=== PATIENT | female | born 1955 | race Caucasian/White ===

== ENCOUNTER 2019-03-24 08:14 | Day surgery (SDC) | payer OTHER ==
[2019-03-24 08:34] LABS: Absolute Lymphocytes (CBC) 1.8 K/uL (0.7-4.9); Absolute Monocytes 0.5 K/uL (0.1-1.3); Absolute Neutrophil 2.7 K/uL (1.8-8.0); Eosinophils % 3.8 % (0-4.4); Hematocrit 36.7 % (36.0-45.0); Lymphocytes % 33.7 % (15.3-44.8); MPV 6.8 fL (7.6-11.3); Monocytes % 8.8 % (3.3-12.3); RBC Red Blood Cell Count 4.11 M/uL (3.86-4.86)
[2019-03-24] MEDS ORDERED: Ringers Lactate 1,000 ML IV ONE ×4 (08:54→15:27)
[2019-03-24] MEDS ORDERED: SCOPOLAMINE HYDROBROMIDE PATCH TD ONE (08:54)
[2019-03-24 09:05] LABS: Urine Appearance CLEAR; Urine Bilirubin NEGATIVE (NEG); Urine Blood NEGATIVE (NEG); Urine Color YELLOW; Urine Glucose NEGATIVE (NEG); Urine Protein NEGATIVE (NEG); Urine Urobilinogen 0.2 mg/dL (0.2-1.0)
[2019-03-24 09:08] LABS: Urine Microscopic Reflex NO UMIC
--- NOTE | 2019-03-24 09:10 | RAD REPORT ---
EXAM DESCRIPTION: Pipo Akers (2 Views)03/24/2019 8:11 am CLINICAL HISTORY: PRE OP FOR SALINE IMPLANT EXTRACTION, BRACHIAL PLASTY, AND BREAST LIFT COMPARISON: None FINDINGS: The lungs appear clear of acute infiltrate. The heart is normal size IMPRESSION: No acute abnormalities displayed
[2019-03-24] MEDS ORDERED: CEFAZOLIN SODIUM 1 GM/VIAL ONE ×2 (09:18→14:34)
[2019-03-24] MEDS ORDERED: BACITRACIN 50000 UNIT VIAL ONE (09:18)
[2019-03-24] MEDS ORDERED: NS 0.9% VIAL 20 ML ONE (09:18)
[2019-03-24] MEDS ORDERED: DEXAMETHASONE 10 MG/ML VIAL ONE (09:18)
[2019-03-24] MEDS ORDERED: PROPOFOL 200 MG/20 ML VIAL IV ONE ×2 (09:18→15:05)
[2019-03-24] MEDS ORDERED: FENTANYL CITR 250 MCG/5 ML ONE (09:18)
[2019-03-24] MEDS ORDERED: GENTAMICIN SULF 80 MG/2ML INJ ONE (09:18)
[2019-03-24] MEDS ORDERED: MIDAZOLAM HCL 2 MG/2 ML INJ ONE (09:19)
[2019-03-24] MEDS ORDERED: NS 0.9% VIAL 10 ML ONE ×4 (09:19→15:09)
[2019-03-24] MEDS ORDERED: ONDANSETRON 4 MG/2 ML VIAL ONE ×2 (09:19→15:09)
[2019-03-24] MEDS ORDERED: LIDOCAINE 1% MPF 5 ML VIAL ONE ×3 (09:19→09:20)
[2019-03-24] MEDS ORDERED: VECURONIUM 10 MG/VIAL IV ONE ×2 (09:19→09:25)
[2019-03-24] MEDS: CEFAZOLIN/SWI 1gm 1 GM/10 ML SYR ONE ×2 (09:45→09:53)
[2019-03-24] MEDS ORDERED: Phenylephrine HCl 10 MG/ML 1 ML VIAL ONE (11:17)
--- NOTE | 2019-03-24 12:03 | EKG ---
Test Date: 2019-03-24 Test Time: 07:55:11 Unemployment Insurance Director: TERRI MEASUREMENT RESULTS: Intervals: Rate: 73 ME: 172 QRSD: 84 QT: 402 QTc: 442 [place]: P: 69 ME: 172 QRS: 43 T: 58 INTERPRETIVE STATEMENTS: Normal sinus rhythm Normal ECG No previous ECG available for comparison Electronically Signed On 03-24-19 12:02:08 CDT by Regulo Hair
[2019-03-24] MEDS ORDERED: FENTANYL CITR 100 MCG/2 ML ONE (13:25)
[2019-03-24] MEDS ORDERED: GLYCOPYRROLATE 0.2 MG/ML SYR ONE ×2 (15:08→15:28)
[2019-03-24] MEDS ORDERED: NEOSTIGMINE 1 MG/ML -10 ML VIAL ONE (15:09)
[2019-03-24] MEDS ORDERED: MEPERIDINE HCL 25 MG/0.5 ML ONE (15:09)
[2019-03-24] MEDS ORDERED: KETOROLAC 30 MG/ML INJ ONE (15:09)
[2019-03-24] MEDS ORDERED: Mastisol Adhesive Liq ONE ×2 (15:34→16:05)
[2019-03-24] MEDS: HYDROMORPHONE HCL 1 MG/ML INJ ONE ×2 (16:30→16:35)
[2019-03-24] MEDS ORDERED: HYDROCODONE/APAP 7.5/325 MG TAB PO ONE (17:32)
[2019-03-24] MEDS ORDERED: HYDROCODONE/APAP 7.5/325 MG TAB ONE (17:47)
--- NOTE | 2019-03-25 03:48 | OP ---
Surgeon: Derek Piedra MD Gas Station Clerk: [place]. Preoperative Diagnoses: Status post breast augmentation with breast descent and lipodystrophy. Postoperative Diagnoses: Status post breast augmentation with breast descent and lipodystrophy. Procedure Performed: 1.Explant and breast lift. 2.Brachioplasty. Anesthesia: General. Procedure In Detail: After satisfactory induction of general anesthesia, the chest was prepped with DuraPrep. Dry sterile drapes applied in the usual manner. A 45 mm template used to outline the righ t and left areola. Transverse and curvilinear inferior incisions were made and the skin was de-epith elialized with the dermabrader or EpiCut. The flap was elevated 1 cm thick towards the sternum, clav icle, anterior axillary line. Then, the inferior incision was made. The dissection was performed re tropectoral on the right side. We removed the implant, which was approached from the pocket. The le ft breast implant was more subcutaneous and removed from the lateral incision in the subcutaneous tis margaret. The right implant was 410 cc, the left implant was 424 g. The patient then had conization perf ormed. This was done with 2-0 PDS suture. The straps were elevated at 12 o'clock, 1:30, and 3 o'carlton ck positions on the right breast, mirror image on the left. The straps were then woven in and out of the pectoralis major muscle, back to the base of the cone, back to pectoralis muscle and back to the base of the cone and tied to themselves with 2-0 PDS. The 3 o'clock strap was sewn over sternum at 3 o'clock position with 2-0 Ethibond. Mirror image was done on the left side. Wounds were temporari ly stapled shut. The patient sat up, examined for symmetry, any irregularities. The patient was the n returned to supine position. The wound was irrigated with antibiotic solution. A 10 KARINA was gardenia t out of the axilla, sewn in place with 2-0 silk. Excess dog-ears were cut off with a scalpel and wi th cutting forceps, and the wound closed in layers with 3-0 Vicryl subcutaneous, 3-0 PDS running subc uticular tied in the vertical meridian of the breasts. Left and right side done simultaneously, then 45 mm template was used to outline the core of the nipples. Delivery site tissue was excised. Nipp les delivered and sewn with interrupted 4-0 PDS followed by 4-0 PDS running subcuticular. Attention was turned to the brachioplasty. The patient was re-prepped. All new drapes, gowns, and equipments were used. Prepped circumferentially with a DuraPrep. Stockinettes were placed in the arms. Dry st erile drapes applied in the usual manner. Also, a transaxial and a transverse incision was made. Ex cess skin was then cut off. It is done on both sides and then electrocautery was used for hemostasis . The wound was then closed with 0 Vicryl in the subcutaneous, 4-0 PDS running and locking. Dressin gs with tincture of benzoin and Steri-Strips over the arms and then Kerlix. The dressing consisted o f tincture of benzoin, Steri-Strips, 4 x 4's, fluffs, and Kane wrap. The patient tolerated the proced ure well and returned to recovery. Estimated blood loss about 300 cc. ALEXX/IRENA Voice ID: [id number] Report ID: [id number]
== END 2019-03-24 17:58 | disposition home or self-care (01) ==
LOC: OR 08:14
PROVIDERS: ATTEND Specialist
PROC: 0HSV0ZZ Reposition Bilateral Breast, Open Approach (ICD-10-PCS; 2019-03-24)
PROC: 0J0F0ZZ Alteration of Left Upper Arm Subcutaneous Tissue and Fascia, Open Approach (ICD-10-PCS; 2019-03-24)
PROC: 0J0D0ZZ Alteration of Right Upper Arm Subcutaneous Tissue and Fascia, Open Approach (ICD-10-PCS; 2019-03-24)
PROC: 0HPU0JZ Removal of Synthetic Substitute from Left Breast, Open Approach (ICD-10-PCS; principal; 2019-03-24 09:00)
PROC: 0HPT0JZ Removal of Synthetic Substitute from Right Breast, Open Approach (ICD-10-PCS; 2019-03-24 09:00)
DX: N65.1 Disproportion of reconstructed breast (principal); L98.7 Excessive and redundant skin and subcutaneous tissue; E88.1 Lipodystrophy, not elsewhere classified; N60.91 Unspecified benign mammary dysplasia of right breast; N60.41 Mammary duct ectasia of right breast
CPT/HCPCS: 36415; 71046; 81003; 85025; 88305; 93005; J0690; J1100; J1170; J1580; J2175; J2250; J2370; J2405; J2704; J2710; J3010

== ENCOUNTER 2019-12-08 08:16 | Day surgery (SDC) | payer OTHER ==
[~2019-12-08 08:16] MED LIST: EPINEPHRINE/PF 1 MG/ML AMP ONE; Mastisol Adhesive Liq ONE; NA CHLORIDE 0.9% 2,000 ML ONE
[2019-12-08] MEDS ORDERED: propofoL 200 MG/20 ML VIAL IV ONE (08:17)
[2019-12-08] MEDS ORDERED: LIDOCAINE 2% MPF 5 ML VIAL ONE (08:17)
[2019-12-08] MEDS ORDERED: MIDAZOLAM HCL 2 MG/2 ML INJ ONE (08:17)
[2019-12-08] MEDS ORDERED: FENTANYL CITR 250 MCG/5 ML ONE (08:17)
[2019-12-08] MEDS ORDERED: ROCURONIUM 50 MG/5 ML VIAL IV ONE (08:17)
[2019-12-08] MEDS ORDERED: NS 0.9% VIAL 20 ML ONE (08:20)
[2019-12-08 08:25] LABS: Absolute Lymphocytes (CBC) 1.8 K/uL (0.7-4.9); Basophils % 0.8 % (0-1.3); Hematocrit 37.6 % (36.0-45.0); Lymphocytes % 34.2 % (15.3-44.8); MPV 6.7 fL (7.6-11.3); RBC Red Blood Cell Count 4.25 M/uL (3.86-4.86)
--- NOTE | 2019-12-08 08:41 | EKG ---
Test Date: 2019-12-08 Test Time: 07:54:51 Nailer Operator: TERRI MEASUREMENT RESULTS: Intervals: Rate: 67 AR: 180 QRSD: 84 QT: 416 QTc: 439 [place]: P: 66 AR: 180 QRS: 47 T: 40 INTERPRETIVE STATEMENTS: Normal sinus rhythm Nonspecific T wave abnormality Abnormal ECG Compared to ECG 03/24/2019 07:55:11 T-wave abnormality now present Electronically Signed On 12-08-19 08:40:50 TENTMAKER by Regulo Hair
--- NOTE | 2019-12-08 08:43 | RAD REPORT ---
EXAM DESCRIPTION: RAD - Chest Pa And Lat (2 Views) - 12/08/2019 8:16 am CLINICAL HISTORY: preop Chest pain. COMPARISON: Chest Pa And Lat (2 Views) dated 03/24/2019 FINDINGS: The lungs are clear. The heart is mildly to moderately enlarged. No displaced fractures.
[2019-12-08] MEDS ORDERED: CEFAZOLIN/SWI 1gm 1 GM/10 ML SYR ONE (08:56)
[2019-12-08] MEDS ORDERED: Ringers Lactate 1,000 ML IV ONE ×3 (08:56→12:29)
[2019-12-08] MEDS ORDERED: SCOPOLAMINE HYDROBROMIDE PATCH TD ONE ×2 (08:56→09:05)
[2019-12-08] MEDS ORDERED: LANO/MINERAL OIL/PETRO 3.5 GM ONE (09:50)
[2019-12-08] MEDS ORDERED: VECURONIUM 10 MG/VIAL IV ONE (10:55)
[2019-12-08] MEDS ORDERED: Mastisol Adhesive Liq ONE (12:27)
[2019-12-08] MEDS ORDERED: MEPERIDINE HCL 25 MG/0.5 ML ONE (12:28)
[2019-12-08] MEDS ORDERED: dexAMETHasone 10 MG/ML VIAL ONE (12:28)
[2019-12-08] MEDS ORDERED: ONDANSETRON 4 MG/2 ML VIAL ONE ×2 (12:28→14:14)
[2019-12-08] MEDS ORDERED: GLYCOPYRROLATE 0.2 MG/ML SYR ONE (12:46)
[2019-12-08] MEDS ORDERED: NEOSTIGMINE 1 MG/ML -5 ML ONE (12:54)
[2019-12-08] MEDS: MEPERIDINE HCL 25 MG/0.5 ML ONE ×2 (13:33→13:45)
[2019-12-08] MEDS ORDERED: HYDROMORPHONE HCL 1 MG/ML INJ ONE (14:09)
[2019-12-08] MEDS ORDERED: CODEINE 30MG/APAP 300MG TAB ONE (15:04)
[2019-12-08 16:41] VITALS: BP 133/69; TEMP 98.6; O2SAT 99
--- NOTE | 2019-12-09 08:39 | OP ---
Surgeon: Derek Piedra MD Surgical Training Specialist: [place]. Preoperative Diagnosis: Status post breast lift and brachioplasty, lipodystrophy of the thighs, hypermastia. Postoperative Diagnoses: Status post breast lift and brachioplasty, lipodystrophy of the thighs, hypermastia. Procedure: Scar revision of brachioplasty and breast lift with liposuction of the thighs with fat transfer to the breast. Anesthesia: General. Description Of Procedure: The was patient prepped circumferentially with DuraPrep from the umbilicus down to the ankles and then laid on sterile sheets. General anesthesia was induced. Dry sterile drapes applied in usual manner. Incision was made with 15 blade over the medial knee region, mid thigh medially and lateral thigh. A 3 mm cannula was introduced and fat was tumesced. Normal saline with epinephrine and tumescent injected into the medial and lateral, both right and left legs. After this was done, liposuction was performed with a 4 mm cannula. The amount removed from the medial thigh was 600 on the right and 600 on the left, removed was 500 on the right and 500 on the left. The upper wounds were closed with 4-0 PDS and the lower wound was left open. Dressings consisted of tincture of benzoin, Steri-Strips, Kerlix, and a compressive garment was applied. The fat was allowed to gravity. Attention was turned to the chest and arms. The patient was re-prepped with DuraPrep over the arm circumferentially and the chest. Dry sterile drapes applied in usual manner. The previous brachoplasty was _ extension laterally. This was extended approximately 5 cm below the elbow flexion crease and then the excess skin was cut out. This was done on both sides and then liposuction was performed in the elbow region with this amount of fat. Wounds were closed in layers. A 7 KARINA drain was brought out posterior distally and swen with 2-0 silk and later closed with 3-0 Vicryl interrupted and then 3-0 PDS running locking to close the wounds. Tincture of benzoin and Steri-Strips were later applied and then Kerlix dressings. Attention to the breast. The patient had an incision made in the previous incision for the breast lift. A 15 blade was used to incise the skin and fat was transferred into the right and left breasts and the patient was sat up, reassessed and then fat was again transferred. The total amount infused into the right breast was 235 and a smaller left breast was 225 . The patient had the dog ears resected, 4 g tissue removed from right and 8 g from the left and then the wounds were closed with interrupted 3-0 Vicryl and then running 3-0 PDS subcuticular from medial to lateral, lateral to medial tied in the center then, tincture of benzoin and Steri-Strips were applied. 5-0 Ethilon was applied and then fluffs and Kane wrap and the patient tolerated the procedure well and returned to Recovery. ALEXX/IRENA Voice ID: [id number] Report ID: [id number] RON
== END 2019-12-08 16:15 | disposition home or self-care (01) ==
LOC: OR 08:16
PROVIDERS: ATTEND Specialist
PROC: 0HBBXZZ Excision of Right Upper Arm Skin, External Approach (ICD-10-PCS; 2019-12-08)
PROC: 0JDM3ZZ Extraction of Left Upper Leg Subcutaneous Tissue and Fascia, Percutaneous Approach (ICD-10-PCS; principal; 2019-12-08 09:00)
PROC: 0JDL3ZZ Extraction of Right Upper Leg Subcutaneous Tissue and Fascia, Percutaneous Approach (ICD-10-PCS; 2019-12-08 09:00)
PROC: 0HBCXZZ Excision of Left Upper Arm Skin, External Approach (ICD-10-PCS; 2019-12-08 09:00)
DX: N64.82 Hypoplasia of breast (principal); E88.1 Lipodystrophy, not elsewhere classified; L90.5 Scar conditions and fibrosis of skin; G47.33 Obstructive sleep apnea (adult) (pediatric); Z86.73 Personal history of transient ischemic attack (TIA), and cerebral infarction without residual deficits
CPT/HCPCS: 15771; 15772 ×9; 11406; 93005; 85025; 36415; 71046; J2704; J0171; J2250; J3010; J1100; J2175 ×2; J1170; J2710; J0690; J7120 ×3; J7030; J2405 ×2

== ENCOUNTER 2020-03-29 09:03 | Day surgery (SDC) | payer OTHER ==
[2020-03-29 09:11] LABS: Absolute Lymphocytes (CBC) 2.5 K/uL (0.7-4.9); Basophils % 0.8 % (0-1.3); Hematocrit 44.6 % (36.0-45.0); MPV 6.8 fL (7.6-11.3)
[2020-03-29] MEDS ORDERED: Ringers Lactate 1,000 ML IV ONE ×2 (09:43→13:02)
[2020-03-29] MEDS ORDERED: CEFAZOLIN/SWI 1gm 1 GM/10 ML SYR ONE (09:43)
[2020-03-29] MEDS ORDERED: SCOPOLAMINE HYDROBROMIDE PATCH TD ONE (09:44)
[2020-03-29] MEDS ORDERED: NA CHLORIDE 0.9% 2,000 ML ONE (10:35)
[2020-03-29] MEDS ORDERED: EPINEPHRINE/PF 1 MG/ML AMP ONE (10:35)
[2020-03-29] MEDS ORDERED: dexAMETHasone 10 MG/ML VIAL ONE (10:54)
[2020-03-29] MEDS ORDERED: MIDAZOLAM HCL 2 MG/2 ML INJ ONE (10:54)
[2020-03-29] MEDS ORDERED: LIDOCAINE 2% MPF 5 ML VIAL ONE (10:54)
[2020-03-29] MEDS ORDERED: ROCURONIUM 50 MG/5 ML VIAL IV ONE ×2 (10:54→13:06)
[2020-03-29] MEDS ORDERED: FENTANYL CITR 250 MCG/5 ML ONE (10:54)
[2020-03-29] MEDS ORDERED: propofoL 200 MG/20 ML VIAL IV ONE (10:54)
[2020-03-29] MEDS ORDERED: ONDANSETRON 4 MG/2 ML VIAL ONE ×2 (10:55→15:19)
[2020-03-29] MEDS ORDERED: KETOROLAC 30 MG/ML INJ ONE (13:00)
[2020-03-29] MEDS ORDERED: EPHEDRINE SULF 50 MG/ML VIAL ONE (13:43)
[2020-03-29] MEDS ORDERED: Mastisol Adhesive Liq ONE (13:52)
[2020-03-29] MEDS ORDERED: GLYCOPYRROLATE 0.2 MG/ML SYR ONE (14:52)
[2020-03-29] MEDS: HYDROMORPHONE HCL 2 MG/ML inj ONE ×4 (15:08→15:23)
[2020-03-29 16:13] VITALS: BP 115/59; TEMP 97.4; O2SAT 97
[2020-03-29] MEDS ORDERED: CODEINE 30MG/APAP 300MG TAB ONE (16:31)
--- NOTE | 2020-03-30 05:36 | OP ---
Surgeon: Derek Piedra MD Professional Advisor: [place]. 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 Procedure Performed: Tumescent liposuction of the abdomen, flanks, bilateral and lateral thigh lift, and fat transfer to the right breast. Anesthesia: General. Description Of Procedure: After satisfactory induction of general anesthesia, patient was placed supine on operating table. Dry sterile drapes were applied in the usual manner. The incisions were made over the umbilicus and anterior iliac spine bilaterally and infused with a 2 mm cannula approximately 2000 cc were infused. Then under liposuction for harvest 300 cc from the right flank, 200 cc from the left flank, 330 from the abdomen, and 500 from the upper midline abdomen the wounds were closed with 4-0 PDS. Patient was then placed in the right lateral decubitus position and the left leg prepped with duraprep. The abdomen was prepped with Betadine scrub, Betadine paint, dry sterile drapes applied in the usual manner. The patient had been marked out for the lateral skin incision. A scalpel was used to incise the skin along the previous scar and then the flap was elevated cephalad to the prearranged distance. Excess tissue was excised, then the wound closed in layers. A 10 KARINA was brought out anterior and held in place with 2-0 silk. The area was closed with 3-0 Vicryl on the Berhane's, 3-0 subcu, 3-0 PDS running subcuticular tied, lateral medial and medial lateral and then tincture of benzoin, Steri-Strips, 4x4s,was placed. Then the patient was placed in opposite position and identical procedure performed. The amount removed from the right side was 302 g, from left side 382 g. Patient was then placed supine and chest reprepped with DuraPrep, dry sterile drapes applied in the usual manner. A 15 blade was used to make incision in the previous inframammary fold incision for the previous breast lift. Then the fat was transferred 50 g and applied to the right breast inferiorly as the patient desired from the 3 o'clock and 6 o'clock positions. Wound was closed and then dressings consisted of tincture of benzoin, Steri- Strips, 4x4s, Kane wrap. Abdomen was covered with abdominal binder. ALEXX/IRENA Voice ID: [id number] Report ID: [id number] MTDD
== END 2020-03-29 16:55 | disposition home or self-care (01) ==
LOC: OR 09:03
PROVIDERS: ATTEND Specialist
PROC: 0H0T37Z Alteration of Right Breast with Autologous Tissue Substitute, Percutaneous Approach (ICD-10-PCS; principal; 2020-03-29 11:00)
PROC: 0J0M0ZZ Alteration of Left Upper Leg Subcutaneous Tissue and Fascia, Open Approach (ICD-10-PCS; 2020-03-29 11:00)
PROC: 0J0L0ZZ Alteration of Right Upper Leg Subcutaneous Tissue and Fascia, Open Approach (ICD-10-PCS; 2020-03-29 11:00)
DX: N64.82 Hypoplasia of breast (principal); L98.7 Excessive and redundant skin and subcutaneous tissue; E88.1 Lipodystrophy, not elsewhere classified; M21.852 Other specified acquired deformities of left thigh; M21.851 Other specified acquired deformities of right thigh; M79.89 Other specified soft tissue disorders; Z01.812 Encounter for preprocedural laboratory examination
CPT/HCPCS: 15771; 15832; 85025; 36415; 88302; J2704; J0171; J2250; J1170; J3010; J1100; J0690; J7120 ×2; J7030; J2405 ×2; 88304